=== PATIENT | female | born 1970 | race Caucasian/White ===

== ENCOUNTER → 2023-07-01 11:00 | Outpatient (CLI) | payer OTHER, MEDICAID, SELFPAY ==
--- NOTE | 2023-07-01 11:03 | DI.MRI.S_ITS ---
PROCEDURE: MR HIP RT WO CON INDICATIONS: Right hip/thigh strain TECHNIQUE: Noncontrast coronal T1 spin echo and STIR through the bony pelvis. Coronal and axial T2 fast spin echo with fat saturation, sagittal T1 spin echo, and oblique axial T2 fast spin echo with fat saturation through the hip. COMPARISON: None. FINDINGS: Image quality: Excellent. Bones and joints: Asymmetric [id number] right hip joint osteoarthritic changes are seen with superior joint space narrowing and subchondral sclerosis. No intraosseous lesions or fractures. No avascular necrosis of the femoral heads. The visualized lower lumbar spine appears normally aligned. Tendons and ligaments: Low-grade partial-thickness tear involving distal right gluteus medius at its insertion on the greater trochanter is seen extending to musculotendinous junction. Distal right gluteus minimus tendinosis is seen. The nearby proximal iliotibial band also appears intact. The iliopsoas tendon appears intact, without adjacent bursal fluid collections or evidence for impingement syndrome. Mild tendinosis involving right hamstring tendon origins at ischial tuberosity is seen. Labrum and cartilage: There is loss of articulating cartilage over right femoral head. Fraying of superior anterior right hip labrum with T2 hyperintense signal at 12 to 2 o'clock position is seen concerning for superior anterior right hip labral tear. The alpha angle of the femur is within normal limits at less than 55 degrees. Soft tissues: Visualized muscles demonstrate normal bulk and internal signal. Quadratus femoris muscle demonstrates no internal edema to suggest ischiofemoral impingement. The proximal sciatic neurovascular bundle appears normal adjacent to the hamstring tendons. No free pelvic fluid. Bladder wall thickness is normal. Genitourinary structures and bowel loops appear normal where visualized. Left ovarian cyst is seen measures 1.7 cm in size. IMPRESSION: 1. Asymmetric [id number] right hip joint osteoarthritis. No pelvic or hip fracture. No evidence of avascular necrosis. 2. Low-grade partial-thickness tear involving distal right gluteus medius tendon extending to musculotendinous junction. Distal right gluteus minimus tendinosis. Tendinosis involving right hamstring tendon origins at ischial tuberosity. 3. Suggestion of superior anterior right hip labral tear at 12 to 2 o'clock position. Dictated by: Lion De Los Santos M.D. on 07/01/2023 at 12:21 Approved by: Lion De Los Santos M.D. on 07/01/2023 at 12:24
== END ==
LOC: MRI 11:02
PROVIDERS: PCP Family Medicine; Referring Provider Physician Assistant; Visit Provider Physician Assistant
DX: S76.011A Strain of muscle, fascia and tendon of right hip, initial encounter (principal); M16.11 Unilateral primary osteoarthritis, right hip; N83.202 Unspecified ovarian cyst, left side; X58.XXXA Exposure to other specified factors, initial encounter
CPT/HCPCS: 73721